=== PATIENT | female | born 1985 | race Caucasian/White ===

== ENCOUNTER 2024-05-08 09:50 | Emergency (ER) | payer OTHER, SELFPAY ==
[2024-05-08 09:54] VITALS: BP 176/111; PULSE 66; RESP 16; TEMP 36.4; O2SAT 97; BMI 32.8
--- NOTE | 2024-05-08 10:25 | ED_ITS ---
HPI - General Adult General Chief complaint: Hypertension Stated complaint: hypertension - reflux Time Seen by Provider: 05/08/24 10:06 Source: patient Mode of arrival: ambulatory Limitations: no limitations History of Present Illness HPI narrative: 39-year-old female coming in today with several concerns. She was told to come to the ER today because she had an elevated blood pressure when she was talking to her clinician earlier today. Patient has been dealing with elevated blood pressures for quite some time. She states that she was placed on metoprolol in November of this year. She denies being on other blood pressure medications in the past. She also states she has been dealing with chest discomfort which she was told after having workup in the ER in March, that it was related to reflux. She takes omeprazole on an as-needed basis. And lastly she has had diarrhea for approximately 2 months. On a good day she can have it once or twice, on a bad day up to 10 times. She is unsure if it is related to food. She states that her clinician told her she needs to see a GI specialist, an EGD or colonoscopy have not been scheduled. She denies any unwanted weight changes, no skin or hair changes. She denies any abdominal pain. She denies any urinary symptoms such as increased frequency, urgency or dysuria. Patient had a tubal ligation after her 2nd , no other intra- abdominal surgeries. She currently takes fluoxetine, metoprolol and omeprazole p.r.n.. She states that she has a paternal grandfather that has heart disease and a maternal great grandfather with heart disease. Her parents are healthy but do have hypertension. Related Data Home Medications ?Medication ?Instructions ?Recorded ?Confirmed fluoxetine 10 mg capsule 10 mg PO DAILY 05/08/24 05/08/24 fluoxetine 40 mg capsule 40 mg PO DAILY 05/08/24 05/08/24 metoprolol succinate 50 mg 50 mg PO DAILY 05/08/24 05/08/24 tablet,extended release 24 hr omeprazole 40 mg capsule,delayed 40 mg PO DAILY 05/08/24 05/08/24 release Allergies Allergy/AdvReac Type Severity Reaction Status Date / Time Sulfa (Sulfonamide Allergy Mild rash or Verified 05/08/24 10:01 Antibiotics) hives, violently ill Review of Systems Status of ROS: Reports: 10 or more systems reviewed and unremarkable except as noted in History and below Exam Narrative: Exam Narrative: Well-nourished well-developed patient in no acute distress. Alert and oriented. Answers questions appropriately. Mood and affect are appropriate. Thoughts are goal oriented and rational. No tangential or magical thinking noted. Patient speaks in full sentences without needing to catch her breath. HEENT: Normocephalic atraumatic. Pupils are equally round reactive to light. Extraocular muscles are intact. Conjunctivae are moist without any icterus noted. Moist mucous membranes. Posterior pharynx is normal. Neck is soft without any lymphadenopathy or thyromegaly. No masses are appreciated. Cardiovascular: Heart is regular rate and rhythm S1 and S2 are present without any murmurs. Pain is not reproducible with palpation. Lungs: Clear to auscultation bilaterally no wheezes rhonchi or rales are appreciated. Patient takes deep breaths without any discomfort. Abdomen: Soft and nontender nondistended with normal bowel sounds. No guarding or rebound. No masses or organomegaly appreciated. Extremities: Bilateral lower extremities are without edema. Normal DP and PT pulses. Skin: Well perfused without any obvious rashes. Const: Vital Signs, click to edit/add: Vital Signs - 24 hr 05/08/24 09:54 05/08/24 11:02 05/08/24 12:29 Temperature 97.5 F L Pulse Rate [Pulse Oximeter] 66 67 56 L Respiratory Rate 16 16 16 Blood Pressure [Ri ght Upper Arm] 176/111 H 185/103 H 161/92 H Pulse Oximetry 97 99 98 Oxygen Delivery Me thod Room Air Room Air Room Air Course Course ED Course: EKG, read by me, shows sinus bradycardia with a pulse of 57. Labs including CBC, D-dimer, electrolytes, LFTs, troponin, CRP, lipase were all normal. Chest x-ray, read by me, does not show any acute pathology. Did go over patient's blood pressures with her, she had 1 last week that was 122 systolic and another one a few days before that was 158 systolic. I do not think the metoprolol is the appropriate medication for the patient to be on at this time. We will get an EGD and colonoscopy scheduled for the patient. Will send her home with a stool collecting kit and she was not able to leave a stool sample while in the ER, to collect for C diff and H pylori. Vital Signs Vital signs: Initial Vital Signs Temperature 97.5 F L 05/08/24 09:54 Temperature Source Temporal Artery Scan 05/08/24 09:54 Pulse Rate 66 05/08/24 09:54 Respiratory Rate 16 05/08/24 09:54 Blood Pressure 176/111 H 05/08/24 09:54 Blood Pressure Mean 132 H 05/08/24 09:54 Blood Pressure Position Sitting 05/08/24 09:54 Pulse Oximetry 97 05/08/24 09:54 Oxygen Delivery Method Room Air 05/08/24 09:54 Vital Signs Temperature 97.5 F L 05/08/24 09:54 Pulse Rate 66 05/08/24 09:54 Respiratory Rate 16 05/08/24 09:54 Blood Pressure 176/111 H 05/08/24 09:54 Pulse Oximetry 97 05/08/24 09:54 Oxygen Delivery Method Room Air 05/08/24 09:54 Temperature 97.5 F L 05/08/24 09:54 Pulse Rate 56 L 05/08/24 12:29 Respiratory Rate 16 05/08/24 12:29 Blood Pressure 161/92 H 05/08/24 12:29 Pulse Oximetry 98 05/08/24 12:29 Oxygen Delivery Method Room Air 05/08/24 12:29 Medical Decision Making MDM Narrative Medical decision making narrative: 39-year-old female with poorly controlled hypertension, chronic diarrhea, worsening reflux with chest discomfort. Plan per above. Lab Data Lab results reviewed: Yes I reviewed the patient's lab results Labs: Lab Results 05/08/24 Range/Units 10:29 WBC 4.96 (4.50-11.00) K/uL RBC 4.69 (4.00-5.20) m/uL Hgb 13.2 (12.0-16.0) gm/dL Hct 40.1 (33.0-51.0) % MCV 86 (80-100) fL MCH 28 (26-34) pg MCHC 33 (32-36) gm/dL RDW Coeff of Levi 12.6 (11.5-15.5) % Plt Count 205 (140-440) K/uL Neut % (Auto) 60.5 (42.0-72.0) % Lymph % (Auto) 30.2 (20-44) % [place] % (Auto) 7.1 (0.0-11.0) % Eos % (Auto) 1.4 (0.0-7.0) % Baso % (Auto) 0.8 (0.0-3.0) % Neut # (Auto) 3.00 (1.7-7.0) K/uL Lymph # (Auto) 1.50 (0.90-2.90) K/uL [place] # (Auto) 0.40 (0.00-0.90) K/UL Eos # (Auto) 0.07 (0.00-0.50) K/uL Baso # (Auto) 0.04 (0.00-0.30) K/uL Abs Immat Gran (auto) 0.00 (0.00-0.30) K/uL Imm/Tot Granulo (auto) 0.0 % D-Dimer Quant (PE/DVT) 0.31 (0.00-0.50) ug/ml Sodium 138 (135-149) mmol/L Potassium 3.8 (3.6-5.1) mmol/L Chloride 104 (96-114) mmol/L Carbon Dioxide 28 (20-32) mmol/L Anion Gap 6 L (7-15) mEq/L BUN 8 (5-24) mg/dL Creatinine 0.7 (0.5-1.5) mg/dL Estimated Creat Clear 78.27 Estimated GFR 113 ml/min Glucose 94 (60-115) mg/dL Calcium 9.0 (8.4-10.6) mg/dL Total Bilirubin 0.5 (0.1-1.5) mg/dL Direct Bilirubin 0.3 (0.0-0.5) mg/dL AST 21 (12-35) U/L ALT 18 (4-35) U/L Alkaline Phosphatase 89 (40-150) U/L Troponin I < 0.01 L (0.01-0.04) ng/mL C-Reactive Protein 0.9 (0.5-1.0) mg/dL Total Protein 7.5 (6.0-8.3) g/dL Albumin 4.6 (3.3-5.0) g/dL Lipase 55 (23-300) U/L Imaging Data Chest x-ray: Attestation: I have reviewed the pertinent imaging results. My impression: Normal ECG Data Attestation: I personally reviewed and interpreted this ECG as follows: Discharge Plan Discharge Clinical Impression: Hypertension, GERD (gastroesophageal reflux disease), Atypical chest pain, Diarrhea Patient Disposition: Home, Self-Care Condition: Stable Additional Instructions: A colonoscopy and an EGD have both been ordered for you. You need to keep an eye on for results as your primary care provider is not part of the [facility] system. Recommend you follow-up with primary care provider to discuss your blood pressure control, I recommend that you be taken off of metoprolol and started on a diuretic/Lucio inhibitor combination. You can share these discharge instructions with your primary care provider. You will also be sent home today with a stool collecting kit to test for C.diff and H.pylori which are both infections neck and cause diarrhea. Prescriptions: No Action fluoxetine 40 mg capsule 40 mg PO DAILY metoprolol succinate 50 mg tablet extended release 24 hr 50 mg PO DAILY fluoxetine 10 mg capsule 10 mg PO DAILY Patient Comments: takes 40 mg omeprazole 40 mg capsule,delayed release(DR/EC) 40 mg PO DAILY Stand Alone Forms: [place] Info Instructions
[2024-05-08 10:53] LABS: Basophils Absolute Auto 0.04 K/uL (0.00-0.30); Basophils Percent Auto 0.8 % (0.0-3.0); Eosinophils Absolute Auto 0.07 K/uL (0.00-0.50); Eosinophils Percent Auto 1.4 % (0.0-7.0); Hematocrit 40.1 % (33.0-51.0); Hemoglobin* 13.2 gm/dL (12.0-16.0); Lymphocytes Percent Auto 30.2 % (20-44); Mean Corpuscular HGB Conc 33 gm/dL (32-36); Mean Corpuscular Hemoglobin 28 pg (26-34); Mean Corpuscular Volume 86 fL (80-100); Monocytes Percent Auto 7.1 % (0.0-11.0); Neutrophils Percent Auto 60.5 % (42.0-72.0); Platelet Count* 205 K/uL (140-440); RDW Coefficient of Variation % 12.6 % (11.5-15.5); Red Blood Count 4.69 m/uL (4.00-5.20); White Blood Count* 4.96 K/uL (4.50-11.00)
[2024-05-08 10:56] LABS: Slide Review Reflex No
[2024-05-08 11:02] VITALS: BP 185/103; PULSE 67; RESP 16; O2SAT 99
[2024-05-08 11:08] LABS: Albumin* 4.6 g/dL (3.3-5.0); Chloride* 104 mmol/L (96-114); Sodium* 138 mmol/L (135-149)
[2024-05-08 11:09] LABS: Potassium* 3.8 mmol/L (3.6-5.1)
[2024-05-08 11:10] LABS: Creatinine* 0.7 mg/dL (0.5-1.5); Est. Creatinine Clearance* 78.27; Estimated Glomerular Filt Rate 113 ml/min
[2024-05-08 11:11] LABS: Alkaline Phosphatase* 89 U/L (40-150); Anion Gap 6 mEq/L (7-15); Aspartate Amino Transferase* 21 U/L (12-35); Bilirubin Direct* 0.3 mg/dL (0.0-0.5); Bilirubin Total* 0.5 mg/dL (0.1-1.5); Blood Urea Nitrogen* 8 mg/dL (5-24); Carbon Dioxide* 28 mmol/L (20-32); Lipase* 55 U/L (23-300); Total Protein* 7.5 g/dL (6.0-8.3)
[2024-05-08 11:12] LABS: Alanine Aminotransferase* 18 U/L (4-35); D Dimer Quantitative* 0.31 ug/ml (0.00-0.50); Glucose* 94 mg/dL (60-115)
[2024-05-08 11:14] LABS: C Reactive Protein* 0.9 mg/dL (0.5-1.0)
--- NOTE | 2024-05-08 11:45 | CRLHL7_ITS ---
For Patients: As a result of the Century Cures Act, medical imaging exams and procedure reports are released immediately into your electronic medical record. You may view this report before your referring provider. If you have questions, please contact your health care provider. INDICATION: Hypertension. Reflux. Chest pain. TECHNIQUE: Chest 2 views. COMPARISON: None. FINDINGS: No pneumothorax or pleural effusion. Lungs are clear. Cardiac and mediastinal contours are within normal limits. Upper abdomen and osseous structures as imaged show no acute abnormality. IMPRESSION: No evidence of acute cardiopulmonary disease. Dictated by Bharath Byrd MD @ 05/08/2024 1:06:18 PM (Electronically Signed)
[2024-05-08 11:48] LABS: Troponin I* < 0.01 ng/mL (0.01-0.04)
[2024-05-08 12:29] VITALS: BP 161/92; PULSE 56; RESP 16; O2SAT 98
[2024-05-09 14:09] LABS: H pylori Ag Stool* Negative (Negative)
[2024-05-09 14:40] LABS: C.Difficile Negative (Negative); CDIFFEPI 027 PRESUMPTIVE NEGATIVE (Negative)
== END 2024-05-08 13:02 | disposition home or self-care (01) ==
PROVIDERS: Emergency Provider Family Medicine
DX: R07.89 Other chest pain (principal); I10 Essential (primary) hypertension; R19.7 Diarrhea, unspecified; K21.9 Gastro-esophageal reflux disease without esophagitis
CPT/HCPCS: 36415; 71046; 80048; 80076; 83690; 84484; 85025; 85379; 86140; 87338; 87493; 93005; 99284; 99285

== ENCOUNTER 2024-05-12 10:01 | Outpatient (CLI) | payer OTHER, SELFPAY ==
--- NOTE | 2024-05-12 11:19 | W.ANESCHARGE ---
Anesthesia Charges Start Date/Time Anesthesia Start Date: 05/12/24 Anesthesia Start Time: 11:03 Stop Date/Time Anesthesia Stop Date: 05/12/24 Anesthesia Stop Time: 11:45
--- NOTE | 2024-05-12 11:48 | W.ANESCHARGE ---
Anesthesia Charges Start Date/Time Anesthesia Start Date: 05/12/24 Anesthesia Start Time: 11:03 Stop Date/Time Anesthesia Stop Date: 05/12/24 Anesthesia Stop Time: 11:45
== END 2024-05-12 10:02 | disposition home or self-care (01) ==
LOC: OP CLINIC 10:02
PROVIDERS: Visit Provider Surgery
DX: K21.9 Gastro-esophageal reflux disease without esophagitis (principal); K52.9 Noninfective gastroenteritis and colitis, unspecified
CPT/HCPCS: 00813; 43239; 45380; 88305; J2704; J3490